=== PATIENT | female | born 2000 | race Caucasian/White ===

== ENCOUNTER 2023-05-17 19:14 | Emergency (ER) | payer SELFPAY ==
[2023-05-17 19:16] VITALS: BP 106/80
[2023-05-17 20:22] LABS: Amphetamines Negative (Negative); Barbiturates Negative (Negative); Benzodiazepines Negative (Negative); Buprenorphine Negative (Negative); Cocaine Negative (Negative); Marijuana Positive (Negative); Methadone Negative (Negative); Methamphetamines Negative (Negative); Opiates Negative (Negative); Phencyclidine Negative (Negative); Tricyclic Antidepressants Negative (Negative)
--- NOTE | 2023-05-17 21:02 | ED.GENMED ---
History of Present Illness
General
Chief Complaint: Medication Reaction
Source: patient and significant other
Exam Limitations: none
Time Seen by Provider: 05/17/23 19:39
Nursing documentation reviewed up to this point in time: agreed with
Travel History
Have you had any contact with someone who has COVID-19?: No
Do you have any symptoms of coronavirus? Fever > 100 degrees, chills, cough, shortness of breath, sore throat, loss of taste or smell, muscle aches, or headache?: No
History of Present Illness
History of Present Illness:
The patient is a 22-year-old female who presents with multiple complaints including shakiness in both arms, mild headache, and tingling of both hands. Patient also has mild dizziness. Patient reports that she thinks her symptoms are due to her
restarting her Prozac. She reports that she was supposed to be taking either 10 mg or 20 mg of Prozac on a daily basis. She reports that she was concerned that ' Prozac was causing her brain to rot' so she discontinued it a few months ago.
Patient reports that since discontinuing it, she felt anxious so decided to take the Prozac again both yesterday and today. Patient reports that she uses marijuana via vape multiple times a day and all of the symptoms symptoms developed shortly
after taking the Prozac and vaping twice this evening. Patient reports that overall she feels better now. She reports she only ate a bag of chips today but wants to go home and eat
Past History
Past History
ED Past Medical History: Psychiatric (Anxiety)
ED Past Surgical History: None
Social History
Tobacco: Vaping (Vapes marijuana and nicotine)
Alcohol: None
Drug: Marijuana
Personal: Single
Living: with family
Employment: Not employed
Family History
Family History: Other
Review of Systems
Review of Systems
Allergies reviewed?: Yes
All Other Systems: ROS reviewed and negative except as documented in HPI and ROS
Constitutional: Reports fatigue
EENT: Reports no symptoms
Respiratory: Reports no symptoms
Cardiac: Reports palpitations
ABD/GI: Reports no symptoms
: Reports no symptoms
Musculoskeletal: Reports no symptoms
Skin: Reports no symptoms
Neurological: Reports dizzy and headache
Endocrine: Reports no symptoms
Hematologic/Lymphatic: Reports no symptoms
Psychiatric: Reports no symptoms
Phy Exam
Physical Exam
Physical Exam:
Physical Exam
General: no apparent distress, not acutely ill but mildly anxious
Neck: supple. no meningeal signs. normal psoterior pharynx
Heart: s1/s2 regular rate and rhythm, no murmur. equal radial pulses.
Lungs: no acute respiratory distress. clear bilaterally
Abdomen: normal bowel sounds. not tender. no CVAT
Neuro: alert and orientedx3. no focal neurological deficits. Cranial nerves equal symmetric bilaterally. 5 out of 5 strength in all extremities. No drift. Normal gait.
Skin: no rash
Psychiatric: well kept. interactive and cooperative
Extremities: no edema. no calf tenderness. negative homans. good distal pulses
Course
Orders/Labs/Results
Orders:
Orders
05/17/23 19:28
Urine Drug Abuse Screen Urgent
Date Specimen was Collected: 05/17/23
Time Specimen was Collected: 19:21
05/17/23 20:48
Electrocardiogram (*1) Urgent
Reason for Study: Vertigo / Dizzy
05/17/23 20:49
EKG- Treatment ONCE
Abnormal Lab Results
05/17/23
19:28
U Marijuana (THC) Screen Positive H
(Negative)
05/17/23 19:21
05/17/23 19:21
Vital Signs
Initial and Last Documented VS:
Initial Vital Signs
Temp Pulse Resp BP Pulse Ox
98.1 F 74 18 106/80 100
05/17/23 19:16 05/17/23 19:16 05/17/23 19:16 05/17/23 19:16 05/17/23 19:16
Last Documented Vital Signs
Temp Pulse Resp BP Pulse Ox
98.2 F 59 18 109/64 99
05/17/23 21:17 05/17/23 21:04 05/17/23 21:04 05/17/23 21:04 05/17/23 21:04
MDM/Problems Addressed
Differential Diagnosis Includes:
Marijuana intoxication, dehydration, anxiety
MDM/Problems Addressed:
Patient presents with acute headache, dizziness, shakiness and tingling in hands
*Pulse Oximetry
Patient hypoxic: no
*EKG
Interpreted by ED Provider?: Yes
Interpretation: normal
Comparison EKG: no comparison EKG present
Rate: bradycardiac
Rhythm: sinus
[place]: normal axis
Interval: normal interval
QRS Pattern: normal QRS
Ischemia: no ischemia
*Supervisor Glycerin Interpretation
Rate: Supervisor Glycerin- N/A
*Critical Care Note
Total Time (30-74mins, 75-104mins- exclusive of procedures): Not Applicable
Data Reviewed
Source: patient and significant other
Patient Management
Social determinants of health affecting care: Living situation and Strong social support
Escalation/DeEscalation of care consider admission/obs:
Patient denies homicidal and suicidal thoughts. She is calm and cooperative. She has a normal neurological exam. I educated the patient and explained that I feel her reaction is due to the marijuana and not to the Prozac. I encourage patient to
greatly diminish her marijuana use and to start taking Prozac on a daily basis as prescribed. Patient appears well-perfused. There is no sign of trauma. Patient encouraged to follow-up with her doctor
ED Attending Note
-
Portions of this chart may have been created with voice recognition software.� Occasional wrong word or��sound alike� substitutions may have occurred due to the inherent limitations of voice recognition software.
Discharge Plan
Departure
Patient Disposition: Home (Routine Discharge)
Date of Disposition: 05/17/23
Time of Disposition: 21:01
Patient with high blood pressure during this ER visit?: No
Condition: Good
Covid-19: Not Applicable
Discharge Problem:
Marijuana intoxication
Instructions: Marijuana Use and Addiction (DC)
Prescriptions:
No Action
pantoprazole [Protonix] 20 MG tablet,delayed release (DR/EC)
20 mg PO BID Qty: 20 0RF
Referrals:
Doreen Pearce MD [Family Provider] -
Activity Restrictions/Additional Instructions:
Please restart your Prozac and take it every day as prescribed by your doctor. If you are not sure about your dose, please call your doctor tomorrow
Interventions
Interventions:
*Risk Screen - Suicide Last Done: 05/17/23 19:16
*Neglect/Abuse Screening Last Done: 05/17/23 19:16
*Nursing Disposition Last Done: 05/17/23 21:17
ED-EENT Assessment Last Done: 05/17/23 20:25
ED- Neurological Assessment Last Done: 05/17/23 20:25
ED-Psychological Assessment Last Done: 05/17/23 20:25
ED- Pulmonary Assessment Last Done: 05/17/23 20:25
ED-Skin Assessment Last Done: 05/17/23 20:25
Discharge Date and Time
Discharge Date/Time: 05/17/23 21:18
[2023-05-17 21:04] VITALS: BP 109/64
== END 2023-05-17 21:18 | disposition home or self-care (01) ==
LOC: EMR 19:14
PROVIDERS: Emergency Medicine; EMERGENCY PHYSICIAN Emergency Medicine; FAMILY PHYSICIAN Emergency Medicine
DX: F12.929 Cannabis use, unspecified with intoxication, unspecified (principal); F41.9 Anxiety disorder, unspecified; F17.290 Nicotine dependence, other tobacco product, uncomplicated; Z79.899 Other long term (current) drug therapy
CPT/HCPCS: 99283; 80306; 93005

== ENCOUNTER 2023-05-23 15:38 | Emergency (ER) | payer OTHER, SELFPAY ==
[2023-05-23 15:55] VITALS: BP 126/82
[2023-05-23 16:36] LABS: % Basophils 0.8 % (0-2); % Eosinophils 0.8 % (0-6); % Immature Granulocytes 0.3 % (0-0.5); % Neutrophils 55.1 % (42.2-75.2); Absolute Basophils 0.1 10^3/uL (0-0.2); Absolute Eosinophils 0.1 10^3/uL (0-0.7); Absolute Lymphocytes 2.7 10^3/uL (1.2-3.4); Absolute Monocytes 0.7 10^3/uL (0.1-0.6); Absolute Neutrophils 4.3 10^3/uL (1.4-6.5); Hematocrit 34.4 % (37.0-47.0); Hemoglobin 11.6 g/dL (12.0-16.0); Mean Corp Hgb Conc. 33.7 g/dL (33.0-37.0); Mean Corpuscular Hgb 31.1 pg (27.0-31.0); Mean Corpuscular Volume 92.2 fL (81.0-99.0); Mean Platelet Volume 11.1 fL (7.4-10.4); Nucleated Red Blood Cells % 0 %; Platelet Count 255 10^3/uL (130-400); Red Blood Cell Count 3.73 10^6/uL (4.20-5.40); Red Cell Dist. Width 12.3 % (11.5-14.5); White Blood Cell Count 7.9 10^3/uL (4.8-10.8)
[2023-05-23 16:45] LABS: HCG, Serum Qualitative Screen Negative
[2023-05-23 16:52] LABS: ALT (SGPT) 15 U/L (0-35); AST (SGOT) 21 U/L (14-36); Alkaline Phosphatase 57 U/L (38-126); Blood Urea Nitrogen 5 mg/dl (7-17); Calcium 9.5 mg/dl (8.4-10.2); Carbon Dioxide 19 mmol/L (22-30); Chloride 104 mmol/L (98-107); Glucose 120 mg/dl (70-99); Potassium 3.6 mmol/L (3.5-5.1); Sodium 138 mmol/L (135-145); Total Bilirubin 0.6 mg/dl (0.2-1.3); Total Protein 7.2 g/dl (6.3-8.2); eGFR > 60.00
--- NOTE | 2023-05-23 17:18 | ED.GENMED ---
History of Present Illness
General
Chief Complaint: Anxiety
Source: patient and family
Exam Limitations: none
Time Seen by Provider: 05/23/23 17:07
Nursing documentation reviewed up to this point in time: agreed with
Travel History
Have you had any contact with someone who has COVID-19?: No
Do you have any symptoms of coronavirus? Fever > 100 degrees, chills, cough, shortness of breath, sore throat, loss of taste or smell, muscle aches, or headache?: No
History of Present Illness
History of Present Illness:
22-year-old female company by mother history of mental illness with Risperdal and Prozac patient's weaning herself off Prozac not sleeping, feels depressed and anxious, no suicidal thoughts, has a psychiatrist, apparently smoked marijuana earlier
today here few nights ago and discharged by report, mother would like her evaluated does not want her to be admitted this evening, but is okay with with a crisis evaluation
Past History
Past History
ED Past Medical History: Psychiatric (Anxiety)
ED Past Surgical History: None
Social History
Tobacco: Vaping (Vapes marijuana and nicotine)
Alcohol: None
Drug: Marijuana
Personal: Single
Living: with family
Employment: Not employed
Family History
Family History: Other
Review of Systems
Review of Systems
Other source history: family
All Other Systems: Not applicable
Constitutional: Reports sleep disturbance
EENT: Reports no symptoms
Respiratory: Reports no symptoms
Cardiac: Reports no symptoms
ABD/GI: Reports no symptoms
: Reports no symptoms
Psychiatric: Reports depression and anxiety; Denies suicidal or hallucinations
Phy Exam
Physical Exam
Physical Exam:
Physical Exam
General: Tearful but cooperative 22-year-old
Neck: No jaundice
Heart: Tachycardic
Lungs: no acute respiratory distress. clear bilaterally
Abdomen: Nontender
Neuro: Moves all extremities oriented to person place knows her mother is in the room
Skin: no rash
Psychiatric: Tearful cooperative admits to anxiety states she is not suicidal
Extremities: no edema.
Course
Orders/Labs/Results
Orders:
Orders
05/23/23 16:04
ECG [Electrocardiogram (*1)] Urgent
Reason for Study: Tachycardia
Test Result ONCE
05/23/23 16:05
EKG- Treatment ONCE
05/23/23 16:18
Acetaminophen Urgent
Comment: ADD ON
Complete Blood Count/With Diff Urgent
Comprehensive Metabolic Panel Urgent
Creatine Phosphokinase Urgent
Comment: ADD ON
HCG, Serum Qualitative Screen Urgent
Salicylate Urgent
Comment: ADD ON
05/23/23 17:17
Crisis Consult Urgent
Reason for Consult: depression
0.9% Sodium Chloride 1000 ml [Nss] 1,000 ml IV BOLUS
Lorazepam [Ativan] 1 mg IV NOW STA
05/23/23 17:25
Add On- LAB Urgent
Tests Added?: cpk, asa, acetaminophen
05/23/23 18:30
Lorazepam [Ativan] 1 mg PO NOW STA
Abnormal Lab Results
05/23/23
16:18
RBC 3.73 L 10^6/uL
(4.20-5.40)
Hgb 11.6 L g/dL
(12.0-16.0)
Hct 34.4 L %
(37.0-47.0)
MCH 31.1 H pg
(27.0-31.0)
MPV 11.1 H fL
(7.4-10.4)
Absolute Monos (auto) 0.7 H 10^3/uL
(0.1-0.6)
Carbon Dioxide 19 L mmol/L
(22-30)
BUN 5 L mg/dl
(7-17)
Creatinine 0.5 L mg/dL
(0.6-1.0)
Glucose 120 H mg/dl
(70-99)
Acetaminophen < 10 L ug/ml
(10-30)
05/23/23 16:18
05/23/23 16:18
Vital Signs
Initial and Last Documented VS:
Initial Vital Signs
Temp Pulse Resp BP Pulse Ox
97.7 F 156 30 126/82 98
05/23/23 15:55 05/23/23 15:55 05/23/23 15:55 05/23/23 15:55 05/23/23 15:55
Last Documented Vital Signs
Temp Pulse Resp BP Pulse Ox
97.7 F 69 23 104/51 97
05/23/23 15:55 05/23/23 20:15 05/23/23 20:15 05/23/23 20:00 05/23/23 20:15
MDM/Problems Addressed
Differential Diagnosis Includes:
Psychosis med effect drug effect toxic agent withdrawal NMS and serotonin syndrome
MDM/Problems Addressed:
Anxiety depression
Chronic conditions affecting care:
Mental illness
*Pulse Oximetry
Patient hypoxic: no
*EKG
Interpreted by ED Provider?: Yes
Interpretation: abnormal
Comparison EKG: no changes
Heart Rate: 145
Rate: tachycardiac
Rhythm: sinus
Ischemia: non-specific ST changes
*Lithograph Operator Interpretation
Rate: Lithograph Operator- N/A
*Critical Care Note
Total Time (30-74mins, 75-104mins- exclusive of procedures): Not Applicable
Update Note
Update Note:
Update, update reviewed, specifically regarding serotonin syndrome, she is afebrile does not have rigidity, will hydrate give her some Ativan she is tachycardic and anxious see how she does
Update 6:30 PM without intervention patient's heart rate is improved she is refusing an IV, will try p.o. Ativan, reviewed with crisis cleared from their perspective. Have outpatient follow-up arranged
On exam she is cooperative, no muscle rigidity,
8:30 PM patient resting comfortably
Discussed with father will have him follow-up as an outpatient we will try to get her take her meds as prescribed
ED Attending Note
-
Portions of this chart may have been created with voice recognition software.� Occasional wrong word or��sound alike� substitutions may have occurred due to the inherent limitations of voice recognition software.
Discharge Plan
Departure
Patient Disposition: Home (Routine Discharge)
Date of Disposition: 05/23/23
Time of Disposition: 20:25
Patient with high blood pressure during this ER visit?: No
Condition: Good
Discharge Problem:
Anxiety
Instructions: Anxiety, Adult (DC)
Prescriptions:
New
lorazepam [Ativan] 0.5 mg tablet
0.5 mg PO TID PRN (Reason: anxiety) Qty: 10 0RF
No Action
pantoprazole [Protonix] 20 MG tablet,delayed release (DR/EC)
20 mg PO BID Qty: 20 0RF
Referrals:
Doreen Pearce MD [Family Provider] - Next open appointment
Activity Restrictions/Additional Instructions:
Take your medications as prescribed follow-up with your primary care provider and psychiatrist return to the ER if worsening symptoms
Interventions
Interventions:
*Risk Screen - Suicide Last Done: 05/23/23 15:55
*General Assessment Last Done: 05/23/23 15:55
*Neglect/Abuse Screening Last Done: 05/23/23 15:55
*ED COVID-19 Vaccine History Last Done: 05/23/23 16:59
ED-Psychological Assessment Last Done: 05/23/23 17:34
Discharge Date and Time
Print Language: SAMI
[2023-05-23 17:33] VITALS: BP 114/79
[2023-05-23 18:34] LABS: Acetaminophen < 10 ug/ml (10-30); Creatine Phosphokinase 67 U/L (30-135); Salicylate 3.3 mg/dl (2.0-20.0)
[2023-05-23] MEDS: ATIVAN 1 MG PO (18:38)
[2023-05-23 18:40] VITALS: BP 115/77
[2023-05-23 19:00] VITALS: BP 117/75
[2023-05-23 20:00] VITALS: BP 104/51
== END 2023-05-23 21:20 | disposition home or self-care (01) ==
LOC: EMR 15:38
PROVIDERS: Emergency Medicine; EMERGENCY PHYSICIAN Emergency Medicine; FAMILY PHYSICIAN Emergency Medicine
DX: F41.9 Anxiety disorder, unspecified (principal); R00.0 Tachycardia, unspecified; F32.A Depression, unspecified; F12.90 Cannabis use, unspecified, uncomplicated; F17.290 Nicotine dependence, other tobacco product, uncomplicated
CPT/HCPCS: 99283; 80053; 80143; 80179; 82550; 84703; 85025; 93005

== ENCOUNTER 2023-06-07 15:58 | Emergency (ER) | payer OTHER, SELFPAY ==
[2023-06-07 16:07] VITALS: BP 111/71
--- NOTE | 2023-06-07 16:52 | ED.GENMED ---
History of Present Illness
<Savi Reis PA-C - Last Filed: 06/10/23 00:14>
General
Chief Complaint: Cough
Source: patient
Exam Limitations: none
Time Seen by Provider: 06/07/23 16:38
Nursing documentation reviewed up to this point in time: agreed with
Travel History
Have you had any contact with someone who has COVID-19?: No
Do you have any symptoms of coronavirus? Fever > 100 degrees, chills, cough, shortness of breath, sore throat, loss of taste or smell, muscle aches, or headache?: No
History of Present Illness
History of Present Illness:
Patient is a 22-year-old female with history anxiety/depression presenting to the emergency department for evaluation of chest discomfort. Patient reports ongoing symptoms intermittently over the past 2 weeks. She describes a pleuritic type chest
pain in her left chest worse with deep breaths. She denies any exertional component. She endorses taking shallow breaths due to pain. Patient does report a productive cough that started this morning with green sputum. She denies any fever,
chills, GI symptoms. She denies any urinary symptoms. She denies any recent viruses/illnesses.
Patient denies any personal or family history of blood clots. She is not on any hormonal control.
Patient does smoke nicotine and vape.
Past History
<Savi Reis PA-C - Last Filed: 06/10/23 00:14>
Past History
ED Past Medical History: Psychiatric (Anxiety)
ED Past Surgical History: None
Social History
Tobacco: Vaping (Vapes marijuana and nicotine)
Alcohol: None
Drug: Marijuana
Personal: Single
Living: with family
Employment: Not employed
Family History
Family History: Other
Phy Exam
<Savi Reis PA-C - Last Filed: 06/10/23 00:14>
Physical Exam
Physical Exam:
General: Agitated, nontoxic-appearing
Vitals: Vital signs stable, afebrile
HEENT: protecting airway
Neck: appears supple
CV: Regular rate and rhythm, heart sounds normal, no evidence of cyanosis; anterior chest nontender to palpation
Resp: No evidence of respiratory distress, lungs clear bilaterally; O2 saturation 99 on room
Abd: Soft, nontender, non-distended
Extremities: No deformities, no evidence of cyanosis or edema; no erythema or edema of bilateral calves, DP pulses palpable and equal bilaterally
Neuro: alert, grossly intact
Psych: Somewhat agitated and anxious appearing
Skin: Intact, no rashes
Scores
<Savi Reis PA-C - Last Filed: 06/10/23 00:14>
PERC Rule Criteria
Age <50 years: Yes
HR <100 bpm: Yes
Room air oxygen sat >94%: Yes
History of DVT or PE: No
Recent trauma or surgery: No
Hemoptysis: No
Exogenous estrogen: No
Clinical signs suggestive of DVT: No
: No
Considered low risk for PE: Yes
PERC Score: 0
PE can be excluded by PERC: Yes
Course
<Savi Reis PA-C - Last Filed: 06/10/23 00:14>
Orders/Labs/Results
Orders:
Orders
06/07/23 17:02
CR Chest - 2 Views Urgent
Comment:
Reason For Exam: xr
06/07/23 17:06
Test Result ONCE
06/07/23 17:14
Complete Blood Count/With Diff Urgent
Comprehensive Metabolic Panel Urgent
D-Dimer Urgent
HCG, Serum Qualitative Screen Urgent
Troponin I Urgent
Abnormal Lab Results
06/07/23
17:14
RBC 3.91 L 10^6/uL
(4.20-5.40)
Hct 35.4 L %
(37.0-47.0)
MCH 31.2 H pg
(27.0-31.0)
MPV 10.7 H fL
(7.4-10.4)
Monocytes % 10.4 H %
(1.7-9.3)
BUN 3 L mg/dl
(7-17)
Creatinine 0.5 L mg/dL
(0.6-1.0)
06/07/23 17:14
06/07/23 17:14
Vital Signs
Initial and Last Documented VS:
Initial Vital Signs
Pulse Resp BP Pulse Ox
77 18 111/71 99
06/07/23 16:07 06/07/23 16:07 06/07/23 16:07 06/07/23 16:07
Last Documented Vital Signs
Pulse Resp BP Pulse Ox
77 18 111/71 99
06/07/23 16:07 06/07/23 16:07 06/07/23 16:07 06/07/23 16:07
<Ronnie Luna MD - Last Filed: 06/07/23 18:20>
Orders/Labs/Results
Orders:
Orders
06/07/23 17:02
CR Chest - 2 Views Urgent
Comment:
Reason For Exam: xr
06/07/23 17:06
Test Result ONCE
06/07/23 17:14
Complete Blood Count/With Diff Urgent
Comprehensive Metabolic Panel Urgent
D-Dimer Urgent
HCG, Serum Qualitative Screen Urgent
Troponin I Urgent
Abnormal Lab Results
06/07/23
17:14
RBC 3.91 L 10^6/uL
(4.20-5.40)
Hct 35.4 L %
(37.0-47.0)
MCH 31.2 H pg
(27.0-31.0)
MPV 10.7 H fL
(7.4-10.4)
Monocytes % 10.4 H %
(1.7-9.3)
BUN 3 L mg/dl
(7-17)
Creatinine 0.5 L mg/dL
(0.6-1.0)
06/07/23 17:14
06/07/23 17:14
Vital Signs
Initial and Last Documented VS:
Initial Vital Signs
Pulse Resp BP Pulse Ox
77 18 111/71 99
06/07/23 16:07 06/07/23 16:07 06/07/23 16:07 06/07/23 16:07
Last Documented Vital Signs
Pulse Resp BP Pulse Ox
77 18 111/71 99
06/07/23 16:07 06/07/23 16:07 06/07/23 16:07 06/07/23 16:07
<Savi Reis PA-C - Last Filed: 06/10/23 00:14>
MDM/Problems Addressed
Differential Diagnosis Includes:
Not limited to: Muscular strain, costochondritis, bronchitis, pneumonia, pneumothorax, PE, viral illness
MDM/Problems Addressed:
Patient is 22 year old female presenting for evaluation of atypical vague chest discomfort and associated cough worsening over the past few weeks. Vital signs stable. Exam as above. Lungs clear. No evidence of DVT on exam. Although clinical
suspicion of DVT very low- given history of smoking and possible pleuritic component will check d-dimer, basic labs. Will check chest xray given history of productive cough although suspicion of pneumonia low. Anticipate discharge
Labs without any clinically significant abnormalities. D-dimer negative. Chest xray shows no evidence of acute process.
Workup negative. Patient is stable. Possible muscular strain vs pleurisy. Return precautions discussed. All questions answered.
Chronic conditions affecting care:
N/A
Acute Exacerbation and/or Progression of Chronic Illness:
N/A
<Savi Reis PA-C - Last Filed: 06/10/23 00:14>
*Radiology
Radiology exam reviewed: radiology read reviewed
*Pulse Oximetry
Patient hypoxic: no
*EKG
Interpreted by ED Provider?: NA
*Die Cast Die Maker Interpretation
Rate: Die Cast Die Maker- N/A
*Critical Care Note
Total Time (30-74mins, 75-104mins- exclusive of procedures): Not Applicable
ED Attending Note
<Savi Reis PA-C - Last Filed: 06/10/23 00:14>
-
Portions of this chart may have been created with voice recognition software.� Occasional wrong word or��sound alike� substitutions may have occurred due to the inherent limitations of voice recognition software.
<Ronnie Luna MD - Last Filed: 06/07/23 18:20>
ED Attending Note
Patient seen and examined by attending physician: Yes
ED Attending Note:
I have seen and evaluated the patient with a [id number] encounter. I have spoken to the advance practicer provider and involved in the medical history, the physical exam, medical decision making.
Evaluation and management service: agree unless noted differently below.
Results interpretation: agree unless noted differently below.
Focused HPI: 22-year-old female presents for atypical chest pain for the past 2 weeks she reports occasional sharp pains in the setting of mild cough.
Physical exam: Vital signs normal. Breathing comfortably no distress. No edema. Extremities warm and well-perfused
Medical Decision Makin-year-old female presents with atypical chest pain for the past 2 weeks. Vital signs normal. Exam as above. Labs sent off including a CBC and CMP which were unremarkable. Troponin undetectable. D-dimer negative.
Chest x-ray reviewed by me shows no pneumonia, no pneumothorax. Suspect likely some mild bronchitis and pleurisy. Supportive care, PCP follow-up.
Discharge Plan
Departure
Patient Disposition: Home (Routine Discharge)
Date of Disposition: 06/07/23
Time of Disposition: 18:19
Patient with high blood pressure during this ER visit?: No
Discharge Problem:
Chest pain
Instructions: Pleurisy
Prescriptions:
No Action
pantoprazole [Protonix] 20 MG tablet,delayed release (DR/EC)
20 mg PO BID Qty: 20 0RF
lorazepam [Ativan] 0.5 mg tablet
0.5 mg PO TID PRN (Reason: anxiety) Qty: 10 0RF
Activity Restrictions/Additional Instructions:
Thank you for visiting the Emergency Department at [facility].
1. Please schedule a follow up appointment as directed. Call first thing tomorrow morning to make an appointment.
2. If indicated, please take your medications as instructed and indicated on discharge paperwork.
3. If any of your symptoms do not improve, or persist, or become more severe within 6-12 hours, please return to the emergency department for further care.
4. Please return to the emergency department if you develop a headache, neck pain/stiffness, fever greater than 100.4F, chest pain, shortness of breath, persistent nausea, vomiting, slurred speech, difficulty walking, numbness/tingling, weakness,
signs of infection or any other symptoms that are worrisome to you.
Please call [phone] if you have any questions.
Interventions
Interventions:
*Risk Screen - Suicide Last Done: 06/07/23 16:07
*General Assessment Last Done: 06/07/23 16:07
*ED COVID-19 Vaccine History Last Done: 06/07/23 16:07
*Nursing Disposition Last Done: 06/07/23 18:42
ED- Pulmonary Assessment Last Done: 06/07/23 17:03
Discharge Date and Time
Discharge Date/Time: 06/07/23 18:42
Print Language: CENTRAL AFR[place]
[2023-06-07 17:26] LABS: % Basophils 0.9 % (0-2); % Eosinophils 0.9 % (0-6); % Immature Granulocytes 0.2 % (0-0.5); % Lymphocytes 28.7 % (20.5-51.1); % Monocytes 10.4 % (1.7-9.3); % Neutrophils 58.9 % (42.2-75.2); Absolute Basophils 0.1 10^3/uL (0-0.2); Absolute Eosinophils 0.1 10^3/uL (0-0.7); Absolute Lymphocytes 1.7 10^3/uL (1.2-3.4); Absolute Monocytes 0.6 10^3/uL (0.1-0.6); Absolute Neutrophils 3.4 10^3/uL (1.4-6.5); Hematocrit 35.4 % (37.0-47.0); Hemoglobin 12.2 g/dL (12.0-16.0); Mean Corp Hgb Conc. 34.5 g/dL (33.0-37.0); Mean Corpuscular Hgb 31.2 pg (27.0-31.0); Mean Corpuscular Volume 90.5 fL (81.0-99.0); Mean Platelet Volume 10.7 fL (7.4-10.4); Nucleated Red Blood Cells % 0 %; Platelet Count 226 10^3/uL (130-400); Red Blood Cell Count 3.91 10^6/uL (4.20-5.40); Red Cell Dist. Width 12.6 % (11.5-14.5); White Blood Cell Count 5.8 10^3/uL (4.8-10.8)
[2023-06-07 17:43] LABS: HCG, Serum Qualitative Screen Negative
[2023-06-07 17:46] LABS: ALT (SGPT) 13 U/L (0-35); AST (SGOT) 21 U/L (14-36); Albumin 4.9 g/dl (3.5-5.0); Alkaline Phosphatase 45 U/L (38-126); Blood Urea Nitrogen 3 mg/dl (7-17); Calcium 9.3 mg/dl (8.4-10.2); Carbon Dioxide 24 mmol/L (22-30); Chloride 104 mmol/L (98-107); Glucose 70 mg/dl (70-99); Potassium 4.2 mmol/L (3.5-5.1); Sodium 138 mmol/L (135-145); Total Bilirubin 0.9 mg/dl (0.2-1.3); Total Protein 6.9 g/dl (6.3-8.2); eGFR > 60.00
[2023-06-07 17:52] LABS: D-Dimer < 0.27 ug/mlFEU (0.00-0.50)
[2023-06-07 17:54] LABS: Troponin I < 0.012 ng/ml
== END 2023-06-07 18:42 | disposition home or self-care (01) ==
LOC: EMR 15:58
PROVIDERS: EMERGENCY PHYSICIAN Emergency Medicine
DX: R07.89 Other chest pain (principal); F41.9 Anxiety disorder, unspecified; F32.A Depression, unspecified
CPT/HCPCS: 99284; 71046; 80053; 84484; 84703; 85025; 85379

== ENCOUNTER 2024-05-04 11:33 | Emergency (ER) | payer OTHER, SELFPAY ==
[2024-05-04 13:56] VITALS: BP 117/76
[2024-05-04 14:12] LABS: Urine Albumin Negative (Neg - Trace); Urine Bilirubin Negative (Negative); Urine Character Slightly Cloudy (Clear); Urine Color Yellow; Urine Glucose Negative (Negative); Urine Ketone Negative (Negative); Urine Leukocyte Negative (Negative); Urine Nitrite Negative (Negative); Urine Occult Blood 4+ (Negative); Urine Urobilinogen Negative (Neg - 1+)
[2024-05-04 14:18] LABS: Urine Mucus Moderate; Urine Squamous Cell >30 /LPF (Few)
[2024-05-04 14:20] LABS: Urine Bacteria Few (Negative)
[2024-05-04 14:23] LABS: HCG, Urine Qualitative Screen Negative
--- NOTE | 2024-05-04 14:31 | ED.GENMED ---
History of Present Illness
General
Chief Complaint: Abdominal Pain
Source: patient
Exam Limitations: none
Time Seen by Provider: 05/04/24 13:10
Nursing documentation reviewed up to this point in time: agreed with
History of Present Illness
History of Present Illness:
PT IS A 23 Y/O F
with lower abd pain x 10 days prior to onset of her menstrual cycle which is just trailing off
she has dysuria and pain in her suprapubic region with urination as well
no nausea/vomiting/diarrhea/fever
pt has unprotected sex with 1 partner and is not sure if she was exposed to STI and would like to be chedke
pt wentt o PCP and was sent to the ER
she has no vaginal lesions, itching, discharge but it stlil having some brownish from her period
she has never had STI
Past History
Past History
ED Past Medical History: Psychiatric (Anxiety)
ED Past Surgical History: None
Social History
Tobacco: Vaping (Vapes marijuana and nicotine)
Alcohol: None
Drug: Marijuana
Personal: Single
Living: with family
Employment: Not employed
Family History
Family History: Other
Review of Systems
Review of Systems
Allergies reviewed?: Yes
All Other Systems: Not applicable
Phy Exam
Physical Exam
Physical Exam:
GENERAL: Alert , in no apparent distress
EYE: pupils equal and reactive
NECK: Supple
ENT: o/p clr, mmm.
CARDIAC: Regular rate and rhythm .no edema
LUNGS: Clear breath sounds bilaterally, no acute respiratory distress, no wheezes/rales/rhonchi
ABDOMEN: Soft, mild suprapubic tenderness, no r/g, no cvat, normal bowel sounds
: normal external inspection
brownish discharge in her vaginal vault
mild generalized discomfort but no speicific signiicant CMT
no adnexal tenderness;
NEUROLOGICAL: Alert and oriented, no focal neuro deficits
SKIN: Warm and dry, skin intact.
MUSCULOSKELETAL: No edema, well perfused. neg renuka's sign
PSYCH: Normal and appropriate interaction.
Course
Orders/Labs/Results
Orders:
Orders
05/04/24 13:52
Test Result ONCE
05/04/24 13:59
HCG, Urine Qualitative Screen Urgent
Date Specimen was Collected: 05/04/24
Time Specimen was Collected: 13:58
Urinalysis Reflex To Culture Urgent
Date Specimen was Collected: 05/04/24
Time Specimen was Collected: 13:58
Urine Microscopic Reflex Cult Urgent
Chlamydia/GC by PCR Urgent
KWAME Source: Urine
Specimen Description:
Source:: URINE
Date Specimen was Collected: 05/04/24
Time Specimen was Collected: 13:58
05/04/24 14:28
Pelvis & Transvaginal US [US Pelvis W Transvag Combined] Urgent
Comment:
Reason For Exam: PELVIC PAIN, VAG BLEED, DYSURIA; CONCERN FOR STD
05/04/24 16:36
Cephalexin Monohydrate [Keflex] 500 mg PO NOW STA
Ibuprofen [Motrin] 600 mg PO NOW STA
Abnormal Lab Results
05/04/24
13:59
Ur Occult Blood Reflex 4+ A
(Negative)
Urine RBC 3-6 A /HPF
(0-2)
Urine Bacteria (Reflex) Few A
(Negative)
05/04/24 14:24
Vital Signs
Initial and Last Documented VS:
Initial Vital Signs
Temp Pulse Resp Pulse Ox
36.5 C 88 18 99
05/04/24 11:35 05/04/24 11:35 05/04/24 11:35 05/04/24 11:35
Last Documented Vital Signs
Temp Pulse Resp BP Pulse Ox
36.5 C 77 18 116/79 99
05/04/24 11:35 05/04/24 16:43 05/04/24 16:43 05/04/24 16:43 05/04/24 16:43
MDM/Problems Addressed
Differential Diagnosis Includes:
cervicitis, pid, uti, toa, tosion, ovarian cyst
MDM/Problems Addressed:
23 y/o F
her with 10 days of lower abd pain, dysuria, frequency
1 sexual partner but concernd about possibility of sti and wants to be checked
having brownish discharge but just finishing mesntrua cycle
pain is mld [place] region
no fever
nontoxic appearing
mild suprapubic tendenress
mild bimanual tenderness but has not had pelvic exam before
brownish discharge
ua is contaminated but abnormal
neg gc/ct
US shows moderate sized complex ovarian cyst on L vs. endometrioma
no signs torsion
pt extremely comfortable
Making it much less likely she does have an intermittent torsion. She was encouraged to follow-up with ORDER MAKE UP CLERK. Will empirically cover her with antibiotics for presumed UTI. Recommend NSAIDs and heat for her cyst.
*Critical Care Note
Total Time (30-74mins, 75-104mins- exclusive of procedures): Not Applicable
ED Attending Note
-
Portions of this chart may have been created with voice recognition software.� Occasional wrong word or��sound alike� substitutions may have occurred due to the inherent limitations of voice recognition software.
Discharge Plan
Departure
Patient Disposition: Home (Routine Discharge)
Date of Disposition: 05/04/24
Time of Disposition: 16:36
Patient with high blood pressure during this ER visit?: No
Condition: Fair
Covid-19: Not Applicable
Discharge Problem:
Ovarian cyst, UTI (urinary tract infection)
Instructions: Urinary tract infection - Discharge instructions, Ovarian cyst - ED discharge instructions
Prescriptions:
New
cephalexin 500 mg capsule
500 mg PO Q12H Qty: 10 0RF
No Action
pantoprazole [Protonix] 20 MG tablet,delayed release (DR/EC)
20 mg PO BID Qty: 20 0RF
lorazepam [Ativan] 0.5 mg tablet
0.5 mg PO TID PRN (Reason: anxiety) Qty: 10 0RF
Referrals:
Jorge Luis Meeks DO [Family Provider] - Follow up in 2-3 days
Li Francis MD [Active] - Follow up in 1 week (OB/GYNE)
Activity Restrictions/Additional Instructions:
YOU TESTED NEGATIVE FOR GONORRHEA AND CHLAMYDIA
YOU MAY HAVE A URINE INFECTION
TAKE KEFLEX TWICE A DAY FOR 5 DAYS.
FOR PAIN TAKE MOTRIN 600 MG EVERY 8 HOURS NEEDED
YOU ALSO HAVE A COMPLEX LOOKING CYST IN YOUR LEFT OVARY
YOU NEED TO FOLLOW UP WITH A SPECIMEN PREPARATION ASSISTANT
YOU MAY NEED THIS REMOVED
RETURN FOR: SEVERE SUDDEN PELVIC PAIN, VOMITING REPEATEDLY, FEVER, BACK PAIN OR ANY CONCERNS.
Interventions
Interventions:
*Risk Screen - Suicide Last Done: 05/04/24 11:35
*General Assessment Last Done: 05/04/24 11:35
*Neglect/Abuse Screening Last Done: 05/04/24 11:35
*ED COVID-19 Vaccine History Last Done: 05/04/24 11:35
BO-Kyxxvb-Mouvfsun[facility] Assessment Last Done: 05/04/24 14:00
Discharge Date and Time
Print Language: BOLIVIAN
[2024-05-04] MEDS: KEFLEX 500 MG PO (16:40)
[2024-05-04] MEDS: MOTRIN 600 MG PO (16:41)
[2024-05-04 16:43] VITALS: BP 116/79
== END 2024-05-04 17:20 | disposition home or self-care (01) ==
LOC: EMR 11:33
PROVIDERS: Physician Assistant; EMERGENCY PHYSICIAN Student in an Organized Health Care Education/Training Program; FAMILY PHYSICIAN Family Medicine
DX: N83.292 Other ovarian cyst, left side (principal); N39.0 Urinary tract infection, site not specified; F17.290 Nicotine dependence, other tobacco product, uncomplicated; Z20.2 Contact with and (suspected) exposure to infections with a predominantly sexual mode of transmission
CPT/HCPCS: 99284; 76830; 76856; 81003; 81015; 81025; 87491; 87591

== ENCOUNTER 2024-07-31 16:30 | Emergency (ER) | payer OTHER, SELFPAY ==
[2024-07-31 16:40] VITALS: BP 110/79
[2024-07-31 20:00] VITALS: BMI 19.4
[2024-07-31 20:02] VITALS: BP 110/66
--- NOTE | 2024-07-31 20:07 | ED.GENMED ---
History of Present Illness
General
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
Source: patient
Exam Limitations: none
Time Seen by Provider: 07/31/24 19:49
History of Present Illness
History of Present Illness:
23-year-old female vague right pelvic pain x 1 day. Was at the [facility] today. Sent for ultrasound. Symptoms are dull and mild in nature. Denies denies fever chills denies discharge no other complaints. Known 5 cm complex cyst
Past History
Past History
ED Past Medical History: Psychiatric (Anxiety) and Other (Known right ovarian cyst)
ED Past Surgical History: None
Social History
Tobacco: Vaping (Vapes marijuana and nicotine)
Alcohol: None
Drug: Marijuana
Personal: Single
Living: with family
Employment: Not employed
Family History
Family History: Other
Review of Systems
Review of Systems
All Other Systems: Not applicable
Constitutional: Denies fever
: Denies dysuria, bleeding or discharge
Phy Exam
Physical Exam
Physical Exam:
GENERAL: Alert and oriented in no apparent distress. Ambulated into the room in no distress
CARDIAC: Regular rate and rhythm without any obvious murmurs.
LUNGS: Clear breath sounds,normal
ABDOMEN: Soft, no distention. Very minimal right pelvic tenderness. No rebound or guarding no mass or hernia
NEUROLOGICAL: Alert and oriented , grossly non-focal
SKIN: Warm and dry
PSYCH: Normal and appropriate interaction.
Course
Orders/Labs/Results
Orders:
Orders
07/31/24 16:42
Test Result ONCE
07/31/24 19:56
US Pelvis Transvaginal Only Urgent
Comment:
Reason For Exam: rlq pain. known cyst
07/31/24 19:59
Test Result ONCE
07/31/24 20:10
US Abdomen - Appendix Only Urgent
Comment:
Reason For Exam: rlq pain
07/31/24 20:20
HCG, Urine Qualitative Screen Urgent
Date Specimen was Collected: 07/31/24
Time Specimen was Collected: 20:03
07/31/24 16:42
07/31/24 16:42
Vital Signs
Initial and Last Documented VS:
Initial Vital Signs
Temp Pulse Resp BP Pulse Ox
98.9 F 79 18 110/79 98
07/31/24 16:40 07/31/24 16:40 07/31/24 16:40 07/31/24 16:40 07/31/24 16:40
Last Documented Vital Signs
Temp Pulse Resp BP Pulse Ox
98.9 F 79 17 110/66 98
07/31/24 16:40 07/31/24 16:40 07/31/24 20:02 07/31/24 20:02 07/31/24 16:40
MDM/Problems Addressed
Differential Diagnosis Includes:
Patient with vague right pelvic discomfort. Mostly here for evaluation of known ovarian cyst. Highly doubt torsion. Urine test to rule out ectopic. Doubt appendicitis. Nonsurgical abdomen. No fever.
*Radiology
Radiology exam reviewed: radiology read reviewed (Nonvisualized appendix. Normal pelvic ultrasound)
*Pulse Oximetry
Patient hypoxic: no (98%)
*Critical Care Note
Total Time (30-74mins, 75-104mins- exclusive of procedures): Not Applicable
Data Reviewed
Review of Other/Old Records Reveals: Labs, Records, Radiology Studies and Testing
Update Note
Update Note:
Patient is resting comfortably with sleeping asymptomatic. Cyst is gone. Highly doubt appendicitis. Nonsurgical abdomen currently nontender nonvisualized appendix. Do not feel labs would be of benefit at this time. Outpatient observation and
follow-up
ED Attending Note
-
Portions of this chart may have been created with voice recognition software.� Occasional wrong word or��sound alike� substitutions may have occurred due to the inherent limitations of voice recognition software.
Discharge Plan
Departure
Patient Disposition: Home (Routine Discharge)
Date of Disposition: 07/31/24
Time of Disposition: 22:17
Patient with high blood pressure during this ER visit?: No
Discharge Problem:
Pelvic pain, Resolved ovarian cyst
Instructions: Abdominal Pain
Prescriptions:
No Action
pantoprazole [Protonix] 20 MG tablet,delayed release (DR/EC)
20 mg PO BID Qty: 20 0RF
lorazepam [Ativan] 0.5 mg tablet
0.5 mg PO TID PRN (Reason: anxiety) Qty: 10 0RF
cephalexin 500 mg capsule
500 mg PO Q12H Qty: 10 0RF
Referrals:
Doreen Pearce MD [Family Provider, Internal Medicine] - Follow up in 2-3 days
Activity Restrictions/Additional Instructions:
Close follow-up with your BUDGET MANAGER physician
Return with increasing pain, fever vomiting or if symptoms have not totally resolved in 1 to 2 days
Interventions
Interventions:
*Risk Screen - Suicide Last Done: 07/31/24 16:40
*General Assessment Last Done: 07/31/24 16:40
*Neglect/Abuse Screening Last Done: 07/31/24 16:40
*ED- Fall Risk Assessment Last Done: 07/31/24 16:40
*ED COVID-19 Vaccine History Last Done: 07/31/24 16:40
ED-Female Genitourinary Assessment Last Done: 07/31/24 20:00
Discharge Date and Time
Print Language: ALBANIAN
[2024-07-31 20:31] LABS: HCG, Urine Qualitative Screen Negative
[2024-07-31 22:39] VITALS: BP 96/57
== END 2024-07-31 22:46 | disposition home or self-care (01) ==
LOC: EMR 16:30
PROVIDERS: EMERGENCY PHYSICIAN Emergency Medicine; FAMILY PHYSICIAN Emergency Medicine; REFERRING PHYSICIAN Obstetrics & Gynecology
DX: R10.2 Pelvic and perineal pain (principal); Z87.42 Personal history of other diseases of the female genital tract; F17.290 Nicotine dependence, other tobacco product, uncomplicated
CPT/HCPCS: 99284; 76705; 76830; 81025

== ENCOUNTER 2024-10-24 21:18 | Emergency (ER) | payer OTHER, SELFPAY ==
[2024-10-24 23:16] LABS: Urine Character Clear (Clear)
[2024-10-24 23:17] LABS: Hematocrit 35.5 % (37.0-47.0); Hemoglobin 12.1 g/dL (12.0-16.0); Mean Corp Hgb Conc. 34.1 g/dL (33.0-37.0); Mean Corpuscular Volume 89.9 fL (81.0-99.0); Nucleated Red Blood Cells % 0 %; Platelet Count 212 10^3/uL (130-400); Red Cell Dist. Width 11.9 % (11.5-14.5)
[2024-10-24 23:31] LABS: ALT (SGPT) 12 U/L (0-35); AST (SGOT) 17 U/L (14-36); Albumin 4.8 g/dl (3.5-5.0); Alkaline Phosphatase 49 U/L (38-126); Blood Urea Nitrogen 13 mg/dl (7-17); Calcium 9.7 mg/dl (8.4-10.2); Carbon Dioxide 26 mmol/L (22-30); Chloride 105 mmol/L (98-107); Estimated Creatinine Clearance 124 ml/min; Glucose 95 mg/dl (70-99); Lipase 59 U/L (23-300); Potassium 3.8 mmol/L (3.5-5.1); Sodium 137 mmol/L (135-145); Total Protein 7.2 g/dl (6.3-8.2); eGFR > 60.00
[2024-10-24 23:32] LABS: HCG, Serum Qualitative Screen Negative
[2024-10-24 23:39] LABS: Troponin I < 0.012 ng/ml
--- NOTE | 2024-10-25 01:14 | ED.GENMED ---
History of Present Illness
General
Chief Complaint: Medication Reaction
Source: patient
Exam Limitations: none
Time Seen by Provider: 10/25/24 01:06
Nursing documentation reviewed up to this point in time: agreed with
History of Present Illness
History of Present Illness:
Note:
CHIEF COMPLAINT(S)
- Feeling 'out of it' after taking Jay Jay Wort
HISTORY OF PRESENT ILLNESS
The patient is a 23-year-old female who presents with complaints of feeling 'out of it.' She reports having recently discontinued Prozac, which was initially prescribed by her psychiatrist. The patient denies any thoughts of self-harm.
PHYSICAL EXAM
General: Alert, no acute distress.
Skin: Warm, dry.
Head: Normocephalic, atraumatic.
Neck: Supple, trachea midline.
Eye, Ears, Nose, Mouth, and Throat: Oral mucosa moist.
Cardiovascular: Normal peripheral perfusion, no edema. normal rate and rhythm
Respiratory: Respirations are non-labored.
Gastrointestinal: Abdomen nondistended.
Back: Normal range of motion, Normal alignment.
Musculoskeletal: Normal range of motion, normal strength.
Neurological: Alert and oriented to person, place, time, and situation, No focal neurological deficit observed.
Psychiatric: Cooperative, appropriate mood and affect.
PLAN
- The patient plans to consult with a psychiatrist again.
- Ensure follow-up for any psychiatric concerns.
DIFFERENTIAL DIAGNOSIS
The Differential Diagnosis includes, in no particular order and is not limited to:
1. Medication withdrawal effects
2. Major depressive disorder
3. Anxiety disorder
4. Adjustment disorder
5. Bipolar disorder
6. Substance-induced mood disorder
7. Thyroid dysfunction
8. Electrolyte imbalance
9. Sleep disorder
10. Acute stress reaction
CARE-UPDATE
10/25/24 - 01:20
Patient exhibits paresthesias possibly related to Dickey Wort ingestion. No neurological deficits noted. EKG results normal. Laboratory tests within normal limits. Patient stable and prepared for discharge.
EKG
My independent EKG interpretation is:
- Time of EKG: Not specified
- Rhythm: Not specified
- Heart rate: Not specified
- GA interval: Normal
- QRS duration: Normal
- QT interval: Normal
- Greer: Not specified
- Abnormalities: None observed
- Overall interpretation: Normal EKG
Disposition:
SUMMARY OF ENCOUNTER
The patient, a 23-year-old female, presented to the emergency department due to feeling 'out of it' after discontinuing fluoxetine, which was initially prescribed by her psychiatrist. She expressed dissatisfaction with her psychiatrist and is
considering consulting with another psychiatrist. The patient denies any thoughts of self-harm. She reports recent ingestion of Dickey Wort, leading to possible paresthesias but shows no neurological deficits. The EKG and laboratory tests are
normal. She is stable and prepared for discharge.
DISPOSITION
Discharge.
PLAN
- The patient plans to consult with a psychiatrist again.
- Ensure follow-up for any psychiatric concerns.
INDEPENDENT REVIEW OF LABS AND INTERPRETATION OF TESTS
My independent EKG interpretation is Normal EKG [rhythm, heart rate, and axis not specified]. GA interval, QRS duration, and QT interval are normal. No abnormalities observed.
PATIENT EDUCATION AND COUNSELING
Discussed the potential effects of discontinuing fluoxetine and the possible interaction and side effects of Dickey Wort. Advised on the importance of consulting with a psychiatrist for management of psychiatric conditions and medication
adjustments.
MEDICATION RECONCILIATION
Patient recently discontinued fluoxetine. Potential interaction with Dickey Wort noted.
MEDICAL DECISION MAKING
-Complexity of Data Reviewed:
Chronic conditions affecting care: Possible medication withdrawal effects, major depressive disorder, anxiety disorder, adjustment disorder, bipolar disorder, substance-induced mood disorder, thyroid dysfunction, electrolyte imbalance, sleep
disorder, and acute stress reaction.
-Data:
Category 1:
No specific labs ordered or reviewed beyond EKG.
Category 2:
My independent interpretation of EKG reveals no abnormalities.
Category 3:
Not applicable.
-Risk:
Prescription medication management discussed but no new prescriptions given. Monitoring of the patients psychiatric condition upon outpatient follow-up emphasized.
DIAGNOSIS
1. Possible Medication Withdrawal Effects (ICD-10 code: T43.205A)
2. Possible Paresthesias from Dickey Wort Ingestion (ICD-10 code: R20.2)
Past History
Past History
ED Past Medical History: Psychiatric (Anxiety) and Other (Known right ovarian cyst)
ED Past Surgical History: None
Social History
Tobacco: Vaping (Vapes marijuana and nicotine)
Alcohol: None
Drug: Marijuana
Personal: Single
Living: with family
Employment: Not employed
Family History
Family History: Other
Phy Exam
Physical Exam
Physical Exam:
.
Course
Orders/Labs/Results
Orders:
Orders
10/24/24 21:30
Electrocardiogram (*1) Urgent
Reason for Study: Chest Pain
EKG- Treatment ONCE
IV Insert/Care/Rem.- Treatment PRN
IV Insert/Care/Rem.- Treatment PRN
O2 Therapy [RESP] Urgent
Titrate/Wean O2 to maintain O2 sat greater than (%): 90
Special Instructions: Maintain sats >/=90%
Pulse Ox/spot Check [RESP] Urgent
Quantity: 1
Special Instructions: ON ROOM AIR
10/24/24 22:02
Test Result ONCE
10/24/24 23:02
Complete Blood Count/With Diff Urgent
Comprehensive Metabolic Panel Urgent
HCG, Serum Qualitative Screen Urgent
Lipase Urgent
Troponin I Urgent
Urinalysis Reflex To Culture Urgent
Date Specimen was Collected: 10/24/24
Time Specimen was Collected: 21:30
Abnormal Lab Results
10/24/24
23:02
RBC 3.95 L 10^6/uL
(4.20-5.40)
Hct 35.5 L %
(37.0-47.0)
MPV 10.8 H fL
(7.4-10.4)
10/24/24 23:02
10/24/24 23:02
Vital Signs
Initial and Last Documented VS:
Initial Vital Signs
Temp Pulse Resp Pulse Ox
97.6 F 89 16 100
10/24/24 21:21 10/24/24 21:21 10/24/24 21:21 10/24/24 21:21
Last Documented Vital Signs
Temp Pulse Resp Pulse Ox
97.6 F 73 22 99
10/24/24 21:21 10/25/24 01:00 10/25/24 01:00 10/25/24 01:00
*Pulse Oximetry
SaO2: 99
Oxygen Mode of Delivery: Room air
Patient hypoxic: no
*Critical Care Note
Total Time (30-74mins, 75-104mins- exclusive of procedures): Not Applicable
ED Attending Note
-
Portions of this chart may have been created with voice recognition software.� Occasional wrong word or��sound alike� substitutions may have occurred due to the inherent limitations of voice recognition software.
Discharge Plan
Departure
Patient Disposition: Home (Routine Discharge)
Date of Disposition: 10/25/24
Time of Disposition: 01:14
Patient with high blood pressure during this ER visit?: No
Condition: Good
Discharge Problem:
Paresthesia
Instructions: Hand Numbness, BLOOD PRESSURE
Prescriptions:
No Action
pantoprazole [Protonix] 20 MG tablet,delayed release (DR/EC)
20 mg PO BID Qty: 20 0RF
lorazepam [Ativan] 0.5 mg tablet
0.5 mg PO TID PRN (Reason: anxiety) Qty: 10 0RF
cephalexin 500 mg capsule
500 mg PO Q12H Qty: 10 0RF
Interventions
Interventions:
*Risk Screen - Suicide Last Done: 10/24/24 21:21
*General Assessment Last Done: 10/24/24 21:21
*Neglect/Abuse Screening Last Done: 10/24/24 21:21
*ED- Fall Risk Assessment Last Done: 10/24/24 21:21
*ED COVID-19 Vaccine History Last Done: 10/24/24 22:47
*Nursing Disposition Last Done: 10/24/24 21:51
ED-Skin Assessment Last Done: 10/24/24 22:47
ED- Pulmonary Assessment Last Done: 10/24/24 22:47
ED-EENT Assessment Last Done: 10/24/24 22:50
Discharge Date and Time
Print Language: ESTONIAN
[2024-10-25 01:15] VITALS: BP 106/75
[2024-10-25 01:17] VITALS: BP 106/75
== END 2024-10-25 01:35 | disposition home or self-care (01) ==
LOC: EMR 21:18
PROVIDERS: EMERGENCY PHYSICIAN Emergency Medicine
DX: R20.2 Paresthesia of skin (principal); F17.290 Nicotine dependence, other tobacco product, uncomplicated; F12.90 Cannabis use, unspecified, uncomplicated
CPT/HCPCS: 99284; 80053; 81003; 83690; 84484; 84703; 85025; 93005